=== PATIENT | male | born 1950 | race Caucasian/White ===

== ENCOUNTER 2022-06-17 10:20 | Outpatient (CLI) | payer MEDICARE, BC, SELFPAY ==
--- NOTE | 2022-06-17 10:31 | XR_ITS ---
WS: [id number] XR hip BI m 5V wo/w pel* [id number] REASON FOR EXAM: HIP PAIN FINDINGS: RIGHT HIP: Total left hip arthroplasty with complex fixation of proximal right femur fracture. Prosthetic compon ents appear in proper position and alignment and proximal right femur appears intact. Lucency along t he prosthesis in the femoral neck region may indicate loosening or osteolyses. Infection unlikely. No previous examination for comparison. LEFT HIP: No fracture or focal bone lesion. Moderate narrowing of the joint space with subchondral sclerosis and marginal osteophytes of the acet abulum and femoral head. No soft tissue abnormality. XR/XR hip BI m 5V wo/w pel* [id number] IMPRESSION: Complex total right hip arthroplasty and proximal right femoral fracture fixati on. Probable loosening/osteolyses unknown clinical significance/progression. Moderate osteoarthritis of the right hip.
== END 2022-06-17 10:21 | disposition home or self-care (01) ==
PROVIDERS: Visit Provider Nurse Practitioner Family
DX: M25.559 Pain in unspecified hip (principal); M16.11 Unilateral primary osteoarthritis, right hip
CPT/HCPCS: 73523